=== PATIENT | male | born 1945 | race Caucasian/White ===

== ENCOUNTER 2020-03-10 06:44 | Emergency (ER) | payer MEDICARE, BC ==
[2020-03-10] MEDS: Sodium Chloride 0.9% 1,000 ML IV ONE (07:00)
[2020-03-10] MEDS: Pantoprazole 40 MG in Sodium Chloride 0.9% 100 ML IV ONE (08:10)
[2020-03-10] MEDS: Pantoprazole 40 MG Vial ONE (08:18)
[2020-03-10] MEDS: Sodium Chloride 0.9% 1,000 ML IV SCH (08:22)
[2020-03-10] MEDS: Phytonadione 10 MG in Sodium Chloride 0.9% 50 ML IV ONE (08:40)
--- NOTE | 2020-03-10 08:40 | EDM.PDOC ---
ED HPI GENERAL MEDICAL PROBLEM - General Chief Complaint: General Stated Complaint: RECTAL BLEEDING Time Seen by Provider: 03/10/20 07:30 Source of Information: Reports: Patient, EMS Notes Reviewed, RN History Limitations: Reports: No Limitations - History of Present Illness INITIAL COMMENTS - FREE TEXT/NARRATIVE: Patient got up to use bathroom at 0400, he believe he passed out and woke up on the floor next to his bed with a siginificant amount of dark red, tarry stool. BP 90/50 for EMS. 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 He normally takes omeprazole daily, but has not taken since the previous Wednesday. Denies any previous blood in his stool or coffee ground emesis. Denies any CP, N/V/D, SOB. Onset: Today Onset Date: 03/10/20 Severity: Moderate Improves with: Reports: None Worsens with: Reports: None Associated Symptoms: Reports: No Other Symptoms - Related Data Allergies Allergy/AdvReac Type Severity Reaction Status Date / Time No Known Allergies Allergy Verified 03/10/20 07:13 Home Meds: Home Meds Aspirin [Aspir 81] 81 mg PO DAILY 03/10/20 [History] Ibuprofen/Diphenhydramine HCl [Advil Pm Liqui-Gels] 1 tab PO ASDIRECTED 03/10/20 [History] Metoprolol Succinate [Toprol XL 50mg] 50 mg PO DAILY 03/10/20 [History] Omeprazole 20 mg PO DAILY 03/10/20 [History] Simvastatin 40 mg PO DAILY 03/10/20 [History] Warfarin Sodium [Jantoven] 5 mg PO DAILY 03/10/20 [History] Warfarin [Coumadin] 7.5 mg PO DAILY 03/10/20 [History] traMADol [Ultram] 50 mg PO DAILY 03/10/20 [History] ED ROS GENERAL - Review of Systems Review Of Systems: See Below Constitutional: Reports: Weakness HEENT: Reports: No Symptoms Respiratory: Reports: No Symptoms Cardiovascular: Reports: No Symptoms Endocrine: Reports: No Symptoms GI/Abdominal: Reports: No Symptoms : Reports: No Symptoms Musculoskeletal: Reports: Neck Pain Skin: Reports: No Symptoms Neurological: Reports: No Symptoms Psychiatric: Reports: No Symptoms Hematologic/Lymphatic: Reports: No Symptoms Immunologic: Reports: No Symptoms ED EXAM, GENERAL - Physical Exam Exam: See Below Free Text/Narrative:: On exam, patient has dark blood in the rectum. Denies any pain, c-collar removed after negative CT results. HGB 10.7, INR8.7, 10mg vitamin K started, 40mg protonix IV, 1000ml of NS. Layton hugger on patient. Air unable to fly at this time due to weather, so patient will go to [facility]. Patient continues to deny any pain, no pain with palpation to abd, therefore an ABD CT is not indicated at this time. COVID test pending. Exam Limited By: No Limitations General Appearance: Alert, No Apparent Distress Ears: Normal External Exam Nose: Normal Inspection Throat/Mouth: Normal Inspection, Normal Voice Head: Atraumatic, Normocephalic Neck: Normal Inspection, Full Range of Motion Respiratory/Chest: No Respiratory Distress, Lungs Clear, Normal Breath Sounds, Chest Non-Tender Cardiovascular: Normal Peripheral Pulses, Regular Rate, Rhythm, No Murmur Peripheral Pulses: 3+: Carotid (L), Carotid (R), Radial (L), Radial (R), Dorsalis Pedis (L), Dorsalis Pedis (R) GI/Abdominal: Normal Bowel Sounds, Soft, Non-Tender Rectal (Males) Exam: Black Stool, Bloody Stool, Heme + Stool Back Exam: Normal Inspection. No: CVA Tenderness (R), CVA Tenderness (L) Extremities: Normal Inspection, Non-Tender, No Pedal Edema, Normal Capillary Refill Neurological: Alert, Oriented Psychiatric: Normal Affect, Normal Mood Skin Exam: Dry, Intact, Cool Lymphatic: No Adenopathy Course - Vital Signs Last Recorded V/S: Last Vital Signs Temp 97.3 F 03/10/20 09:41 Pulse 80 03/10/20 09:41 Resp 16 03/10/20 09:41 BP 98/63 03/10/20 09:41 Pulse Ox 98 03/10/20 09:41 - Orders/Labs/Meds Labs: Laboratory Tests 03/10/20 03/10/20 03/10/20 Range/Units 07:10 07:10 07:10 WBC 10.3 (4.0-11.0) K/uL RBC 3.22 L (4.50-6.50) M/uL Hgb 10.7 L (13.0-18.0) g/dL Hct 30.9 L (40.0-54.0) % MCV 96 (76-96) fL MCH 33.2 H (27.0-32.0) pg MCHC 34.6 (31.0-35.0) g/dL RDW 11.2 (11.0-16.0) % Plt Count 170 (150-400) K/uL MPV 10.2 H (6.0-10.0) fL Neut % (Auto) 76.8 H (45.0-70.0) % Lymph % (Auto) 12.7 L (20.0-40.0) % [place] % (Auto) 7.4 (3.0-10.0) % Eos % (Auto) 2.2 (1.0-5.0) % Baso % (Auto) 0.9 H (0.0-0.5) % Neut # (Auto) 7.89 H (2.00-7.50) K/uL Lymph # (Auto) 1.30 L (1.50-4.00) K/uL [place] # (Auto) 0.76 (0.20-0.80) K/uL Eos # (Auto) 0.23 (0.04-0.40) K/uL Baso # (Auto) 0.09 (0.02-0.10) K/uL PT 85.9 H (9.0-11.5) sec INR 8.7 H* (1.0-3.5) Sodium 136 (136-145) mmol/L Potassium 5.8 H (3.5-5.1) mmol/L Chloride 103 (98-107) mmol/L Carbon Dioxide 23.1 (21.0-32.0) mmol/L Anion Gap 15.7 H (5.0-15.0) mmol/L BUN 33 H (8-26) mg/dL Creatinine 1.19 (0.70-1.30) mg/dL Est Cr Clr Drug Dosing TNP Estimated GFR (MDRD) 60 (>60) MLS/MIN BUN/Creatinine Ratio 27.7 H (6-25) Glucose 225 H (74-100) mg/dL Calcium 8.6 (8.5-10.1) mg/dL Total Bilirubin 0.6 (0.0-1.0) mg/dL AST 26 (15-37) U/L ALT 26 (12-78) U/L Alkaline Phosphatase 63 (46-116) U/L Total Protein 5.9 L (6.4-8.2) g/dL Albumin 3.0 L (3.4-5.0) g/dL Globulin 2.9 (2.2-4.2) g/dL Albumin/Globulin Ratio 1.0 (0.8-2.0) COVID-19 (CATHY) Blood Type Gel Antibody Screen 03/10/20 03/10/20 Range/Units 07:10 08:40 WBC (4.0-11.0) K/uL RBC (4.50-6.50) M/uL Hgb (13.0-18.0) g/dL Hct (40.0-54.0) % MCV (76-96) fL MCH (27.0-32.0) pg MCHC (31.0-35.0) g/dL RDW (11.0-16.0) % Plt Count (150-400) K/uL MPV (6.0-10.0) fL Neut % (Auto) (45.0-70.0) % Lymph % (Auto) (20.0-40.0) % [place] % (Auto) (3.0-10.0) % Eos % (Auto) (1.0-5.0) % Baso % (Auto) (0.0-0.5) % Neut # (Auto) (2.00-7.50) K/uL Lymph # (Auto) (1.50-4.00) K/uL [place] # (Auto) (0.20-0.80) K/uL Eos # (Auto) (0.04-0.40) K/uL Baso # (Auto) (0.02-0.10) K/uL PT (9.0-11.5) sec INR (1.0-3.5) Sodium (136-145) mmol/L Potassium (3.5-5.1) mmol/L Chloride (98-107) mmol/L Carbon Dioxide (21.0-32.0) mmol/L Anion Gap (5.0-15.0) mmol/L BUN (8-26) mg/dL Creatinine (0.70-1.30) mg/dL Est Cr Clr Drug Dosing Estimated GFR (MDRD) (>60) MLS/MIN BUN/Creatinine Ratio (6-25) Glucose (74-100) mg/dL Calcium (8.5-10.1) mg/dL Total Bilirubin (0.0-1.0) mg/dL AST (15-37) U/L ALT (12-78) U/L Alkaline Phosphatase (46-116) U/L Total Protein (6.4-8.2) g/dL Albumin (3.4-5.0) g/dL Globulin (2.2-4.2) g/dL Albumin/Globulin Ratio (0.8-2.0) COVID-19 (CATHY) Negative Blood Type O POSITIVE Gel Antibody Screen Negative Meds: Medications Discontinued Medications Generic Name Dose Route Start Last Admin Trade Name Freq PRN Reason Stop Dose Admin Sodium Chloride 1,000 mls @ 999 mls/hr 03/10/20 07:14 03/10/20 07:00 Normal Saline IV 03/10/20 08:14 999 mls/hr .BOLUS ONE Administration Pantoprazole Sodium 40 mg/ 100 mls @ 200 mls/hr 03/10/20 08:08 03/10/20 08:10 Sodium Chloride IV 03/10/20 08:37 200 mls/hr .BOLUS ONE Administration Phytonadione 10 mg/ Sodium 51 mls @ 100 mls/hr 03/10/20 08:16 03/10/20 08:40 Chloride IV 03/10/20 08:46 100 mls/hr NOW ONE Administration Sodium Chloride 1,000 mls @ 999 mls/hr 03/10/20 08:30 03/10/20 08:22 Normal Saline IV 999 mls/hr ASDIRECTED LUCILLE Administration Pantoprazole Sodium Confirm 03/10/20 08:07 03/10/20 08:18 Protonix Iv Administered 03/10/20 08:08 Not Given Dose 40 mg .ROUTE .STK-MED ONE Departure - Departure Time of Disposition: 10:20 Disposition: DC/Tfer to Acute Hospital 02 Clinical Impression: Gastrointestinal bleed Qualifiers: GI bleed type/associated pathology: unspecified gastrointestinal hemorrhage type Qualified Code(s): K92.2 - Gastrointestinal hemorrhage, unspecified - Discharge Information *PRESCRIPTION DRUG MONITORING PROGRAM REVIEWED*: Not Applicable *COPY OF PRESCRIPTION DRUG MONITORING REPORT IN PATIENT VALENTIN: Not Applicable Referrals: PCP,None [Primary Care Provider] - Forms: ED Department Discharge, Interfacility Transfer EMTALA Critical Care Note - Critical Care Note Total Time (mins): 60 Sepsis Event Note (ED) - Evaluation Sepsis Screening Result: No Definite Risk
--- NOTE | 2020-03-10 11:37 | CT ---
DATE OF SERVICE: 03/10/20 CLINICAL DATA: fall UNENHANCED BRAIN CT: No priors. There is diffuse cerebral atrophy. There are periventricular lucencies bilaterally consistent with small vessel ischemic change. No masses or mass effect. No intracranial hemorrhage. No evidence of acute or subacute infarct. There is mucosal thickening in the maxillary and ethmoid sinuses, consistent with chronic sinusitis. There are rounded low density lesions in the left and right maxillary sinuses, consistent with retention cysts or polyps. No fractures. IMPRESSION: No acute intracranial abnormalities. [id number] [facility]
--- NOTE | 2020-03-10 11:44 | CT ---
DATE OF SERVICE: 03/10/20 CLINICAL DATA: fall UNENHANCED CERVICAL SPINE CT: Multislice axial acquisition was performed. Axial images and sagittal and coronal reformations are reviewed. The vertebral bodies are of average height and in good alignment. No acute fracture or dislocation. No lytic or blastic bone lesions. There is degenerative disc disease throughout the cervical spine. There is facet joint hypertrophy throughout the cervical spine. The soft tissues are unremarkable. There is a calcified granuloma in the left apex consistent with prior granulomatous disease. [id number] [facility]
== END 2020-03-10 10:00 ==
LOC: LB.ED 06:44
DX: K92.2 Gastrointestinal hemorrhage, unspecified (principal); Z20.828 Contact with and (suspected) exposure to other viral communicable diseases; Z79.82 Long term (current) use of aspirin; Z79.01 Long term (current) use of anticoagulants; Z79.899 Other long term (current) drug therapy
CPT/HCPCS: 36415; 70450; 72125; 80053; 85025; 85610; 86850; 86900; 86901; 93005; 96361; 96365; 96367; 99291; 99291-25; A0425; A0429; C9113; J3430; J7030; J7050; U0002